=== PATIENT | male | born 1965 | race Caucasian/White ===

== ENCOUNTER 2016-12-07 19:41 | Emergency (ER) | payer OTHER ==
[~2016-12-07] VITALS: Ht 177.8 cm; Wt 132.9 kg
[~2016-12-07 19:41] MED LIST: ACET-1256 PO; BACL10TA PO; GLUCTAB7 PO; IBUP-1105 PO; MULT-506 PO; OXYC1TAB3 PO
[2016-12-07 19:45] VITALS: TEMP 37.3; Ht 177.8 cm; Wt 132.9 kg
[2016-12-07] MEDS ORDERED: METOPROLOL TARTRATE 1 MG/ML VIAL IV STA (19:48)
[2016-12-07 20:11] LABS: BASO % 0.2 %; BASO ABS # 0.02 K/uL (0-0.2); COMPLETE YES; EOS % 2.4 %; HEMATOCRIT 41.7 % (42-52); IG% 0.2 %; LYMPH % 28.8 %; LYMPH ABS # 2.78 K/uL (1.2-3.4); MEAN CELL VOLUME 91.9 fL (80-100); MEAN CORPUSCULAR HEMOGLOBIN 32.8 pg (25-34); MEAN CORPUSCULAR HGB CONC 35.7 g/dl (32-36); MEAN PLATELET VOLUME 9.2 fL (7.4-10.4); MONO % 6.4 %; PLATELET COUNT 203 K/uL (130-400); RED BLOOD COUNT 4.54 M/uL (4.7-6.1); WHITE BLOOD COUNT 9.65 K/uL (4.8-10.8)
[2016-12-07 20:23] LABS: INR 1.2 (0.9-1.1); PARTIAL THROMBOPLASTIN RATIO 1.1; PROTHROMBIN TIME (PATIENT) 12.9 SECONDS (9.0-12.0)
[2016-12-07] MEDS ORDERED: ALBU18002 INH (20:23)
[2016-12-07] MEDS ORDERED: LSN/10125 PO (20:23)
[2016-12-07] MEDS ORDERED: LRS10 PO (20:23)
--- NOTE | 2016-12-07 20:23 | DIAGNOSTIC IMAGING REPORT ---
CHEST ONE VIEW PORTABLE CLINICAL HISTORY: Fever. Sepsis COMPARISON STUDY: Chest radiograph October 18, 2010. FINDINGS: Pacer pads overlie the chest. There is no pneumothorax or pleural effusion. There is no evidence of pulmonary edema. No consolidation is present. Cardiomediastinal silhouette is normal. IMPRESSION: No acute cardiopulmonary findings. Electronically signed by: Karan Huynh M.D. 12/07/2016 8:22 PM Dictated Date/Time: 12/07/2016 8:21 PM
[2016-12-07 20:24] VITALS: O2SAT 97
[2016-12-07 20:29] LABS: BUN/CREATININE RATIO 16.8 (10-20); CALCIUM 8.6 mg/dl (8.5-10.1); CREATININE 1.2 mg/dl (0.60-1.40); POTASSIUM 3.8 mmol/L (3.5-5.1)
[2016-12-07 21:17] LABS: CKMB/CK RATIO 3.4 (0-3.0); THYROID STIMULATING HORMONE 2.76 uIu/ml (0.300-4.500)
[2016-12-07 22:48] VITALS: BP 150/99; PULSE 88; O2SAT 97
--- NOTE | 2016-12-07 23:00 | EMERGENCY ROOM VISIT NOTE ---
History Report prepared by Andrzejibshan: Robyn Mcadams Under the Supervision of: Dr. Yg Kaufman D.O. First contact with patient: 19:21 Stated Complaint: CHEST PAIN History of Present Illness The patient is a 50 year old male who presents to the Emergency Room with complaints of persistent chest pain that started earlier this evening. He was brought to the ED via EMS. 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 He went outside to smoke a cigarette with no improvement. EMS was called and the patient was cardioverted with 100 Joules and given 324 mg Aspirin in the field. He reports he felt much better after getting shocked. The patient admits to a history of hypertension and reports two days ago he saw his primary care physician for shortness of breath and fatigue. He was started on an inhaler, which has provided minimal relief. Source of History: patient Onset: CHEMICAL PRODUCTION TECHNICIAN Position: chest Timing: other (persistent) Modifying Factors (Relieving): other (Aspirin, cardioversion) Associated Symptoms: + SOB, + diaphoresis Review of Systems See HPI for pertinent positives & negatives. A total of 10 systems reviewed and were otherwise negative. Past Medical & Surgical Medical Problems: (1) Alcohol intoxication (2) Chronic back pain (3) Hypertension Social History Alcohol Use: none, heavy Drug Use: none Marital Status: Housing Status: lives with family Occupation Status: employed Current/Historical Medications Scheduled Edjhoutsrqt-Rjkdwodjngg-Ise C- (Glucosamine Chondroitin), 2 TABS PO DAILY Hctz/Lisinopril (Lisinopril/Hctz 10/12.5 Mg), 1 TAB PO NOON Multivitamin (Multivitamin), 1 TAB PO DAILY Scheduled PRN Albuterol Sulfate (Proair Respiclick), 2 PUFFS INH Q4 PRN for SOB/Wheezing Baclofen (Baclofen), 10 MG PO TID PRN for PRN Ibuprofen (Ibuprofen), 200-800 MG PO BID PRN for Pain Allergies Coded Allergies: No Known Allergies (Verified , 12/07/16) Physical Exam Vital Signs Date Time Temp Pulse Resp B/P Pulse Ox O2 Delivery O2 Flow Rate FiO2 12/07/16 22:48 88 17 150/99 97 12/07/16 22:03 89 16 140/91 98 Room Air 12/07/16 21:32 89 14 140/91 100 Nasal Cannula 2.0 12/07/16 20:44 95 20 120/91 99 Nasal Cannula 2.0 12/07/16 20:33 100 19 124/93 99 Nasal Cannula 2.0 12/07/16 20:24 97 Nasal Cannula 2.0 12/07/16 20:23 93 Room Air 12/07/16 20:16 97 20 145/98 94 Room Air 12/07/16 20:14 95 Room Air 12/07/16 20:07 109 12/07/16 20:05 108 146/101 12/07/16 19:45 37.3 117 20 154/110 98 Room Air 12/07/16 19:45 97 Room Air Physical Exam CONSTITUTIONAL/VITAL SIGNS: Reviewed / noted above. GENERAL: Non-toxic in appearance. INTEGUMENTARY: Warm, dry, and [place]. HEAD: Normocephalic. EYES: without scleral icterus or trauma. ENT/OROPHARYNX: clear and moist. LYMPHADENOPATHY/NECK: Is supple without lymphadenopathy or meningismus. RESPIRATORY: Lungs clear and equal. CARDIOVASCULAR: Regular rate and rhythm. GI/ABDOMEN: Soft and nontender. No organomegaly or pulsatile mass. No rebound or guarding. Normal bowel sounds. EXTREMITIES: Warm and well perfused. BACK: No CVA tenderness. NEUROLOGICAL: Intact without focal deficits. PSYCHIATRIC: normal affect. MUSCULOSKELETAL: Normally developed with good muscle tone. Medical Decision & Procedures ER Provider Diagnostic Interpretation: This X-Ray was reviewed and interpreted by myself and the radiologist. CHEST ONE VIEW PORTABLE IMPRESSION: No acute cardiopulmonary findings. Electronically signed by: Karan Huynh M.D. 12/07/2016 8:22 PM Laboratory Results 12/07/16 20:03 Red Blood Count 4.54, Mean Corpuscular Volume 91.9, Mean Corpuscular Hemoglobin 32.8, Mean Corpuscular Hemoglobin Concent 35.7, Mean Platelet Volume 9.2, Neutrophils (%) (Auto) 62.0, Lymphocytes (%) (Auto) 28.8, Monocytes (%) (Auto) 6.4, Eosinophils (%) (Auto) 2.4, Basophils (%) (Auto) 0.2, Neutrophils # (Auto) 5.98, Lymphocytes # (Auto) 2.78, Monocytes # (Auto) 0.62, Eosinophils # (Auto) 0.23, Basophils # (Auto) 0.02 12/07/16 20:03 Test 12/07/16 19:48 12/07/16 20:03 White Blood Count 9.65 K/uL (4.8-10.8) Red Blood Count 4.54 M/uL (4.7-6.1) Hemoglobin 14.9 g/dL (14.0-18.0) Hematocrit 41.7 % (42-52) Mean Corpuscular Volume 91.9 fL (80-100) Mean Corpuscular Hemoglobin 32.8 pg (25-34) Mean Corpuscular Hemoglobin Concent 35.7 g/dl (32-36) Platelet Count 203 K/uL (130-400) Mean Platelet Volume 9.2 fL (7.4-10.4) Neutrophils (%) (Auto) 62.0 % Lymphocytes (%) (Auto) 28.8 % Monocytes (%) (Auto) 6.4 % Eosinophils (%) (Auto) 2.4 % Basophils (%) (Auto) 0.2 % Neutrophils # (Auto) 5.98 K/uL (1.4-6.5) Lymphocytes # (Auto) 2.78 K/uL (1.2-3.4) Monocytes # (Auto) 0.62 K/uL (0.11-0.59) Eosinophils # (Auto) 0.23 K/uL (0-0.5) Basophils # (Auto) 0.02 K/uL (0-0.2) RDW Standard Deviation 41.5 fL (36.4-46.3) RDW Coefficient of Variation 12.3 % (11.5-14.5) Immature Granulocyte % (Auto) 0.2 % Immature Granulocyte # (Auto) 0.02 K/uL (0.00-0.02) Prothrombin Time 12.9 SECONDS (9.0-12.0) Prothromb Time International Ratio 1.2 (0.9-1.1) Activated Partial Thromboplast Time 29.3 SECONDS (21.0-31.0) Partial Thromboplastin Ratio 1.1 D-Dimer 210 ug/L FEU (0-500) Anion Gap 11.0 mmol/L (3-11) Est Creatinine Clear Calc Drug Dose 98.8 ml/min Estimated GFR () 80.1 Estimated GFR (Non- 69.1 BUN/Creatinine Ratio 16.8 (10-20) Calcium Level 8.6 mg/dl (8.5-10.1) Total Bilirubin 0.5 mg/dl (0.2-1) Direct Bilirubin 0.2 mg/dl (0-0.2) Aspartate Amino Transf (AST/SGOT) 42 U/L (15-37) Alanine Aminotransferase (ALT/SGPT) 54 U/L (12-78) Alkaline Phosphatase 67 U/L (45-117) Total Creatine Kinase 189 U/L (39-308) Creatine Kinase MB 6.4 ng/ml (0.5-3.6) Creatine Kinase MB Ratio 3.4 (0-3.0) Troponin I 0.044 ng/ml (0-0.045) Total Protein 7.3 gm/dl (6.4-8.2) Albumin 3.9 gm/dl (3.4-5.0) Lipase 86 U/L (73-393) Thyroid Stimulating Hormone (TSH) 2.760 uIu/ml (0.300-4.500) Laboratory results as stated above per my review. Medications Administered Medications (Trade) Dose Ordered Sig/Robin Route Start Time Stop Time Status Last Admin Dose Admin Metoprolol Tartrate (Lopressor Iv) 5 mg NOW STAT IV 12/07/16 19:48 12/07/16 19:50 DC 12/07/16 20:05 5 MG ECG Indication: chest pain Rate (beats per minute): 110 Rhythm: sinus tachycardia Findings: no acute ischemic change, no ectopy ED Course 1941: Previous medical records were reviewed. The patient was evaluated in room A1. A complete history and physical examination was performed. 1947: Lopressor 5 mg IV. 2153: I discussed the patients case with Dr. Chand, [facility]. The patient will be further evaluated. 2156: I reevaluated the patient. He states he feels well and would like to go home, despite my recommendation that he should remain in the hospital for further evaluation and management. 2199: I discussed the patient's case with Dr. Hargrove, [facility]. He recommends outpatient follow up. 2204: I reevaluated the patient. Despite my recommendation he remain in the hospital for further evaluation, he would like to leave against medical advice. I discussed the consequences associated with this and he verbalized complete understanding. Medical Decision the differential was considered includes acute myocardial infarction, acute coronary syndrome, myocarditis, pericarditis, pericardial effusions /tamponade, esophageal perforation, thoracic aortic dissection, pulmonary embolism, pneumonia, pneumothorax, pancreatitis, shingles, acute cholecystitis, perforated abdominal viscus. Physical 51-year-old male who presents to the ED with a chief complaint of palpitations and lightheadedness and dizziness. The patient was at work at all according when he developed the symptoms. He had the symptoms for about an hour and then EMS was summoned. The patient states that he was seen by his doctor yesterday. He is currently on lisinopril. He did not take his blood pressure medication today. The patient was prescribed albuterol inhaler for some shortness of breath. EMS arrived on scene and found the patient to be in a wide-complex tachycardia. It appears to be atrial fibrillation with RVR with aberrancy. Because the patient's blood pressure was low, he was cardioverted in route with 100 J. His blood pressure was reportedly 60 systolic. The patient's symptoms improved and he converted into a sinus tach. The patient was mostly symptomatically upon his arrival. His initial twelve-lead EKG here reveals a sinus tachycardia rate of 110 without ectopy or acute injury. CBC is normal. Chemistry panel was normal. Troponin is negative. Chest x-ray did not show any acute disease. The patient was given 5 mg of IV Lopressor here. He denied any use of cocaine. He states that he does drink alcohol daily. The patient did not want to stay in the hospital. He states that his is at home and she is a paranoid schizophrenic and cannot be by herself. I spoke with Dr. Hargrove about the patient. He also does not recommend the patient leave. The patient was advised of this and decided to sign out AGAINST MEDICAL ADVICE. The patient was given follow-up information for cardiology. He was advised to contact them on Saturday and return for any recurrence of symptoms or any new symptoms. Consults Time Called: 2149 Consulting Physician: Edmund Montalvo Returned Call: [phone] I discussed the patients case with Edmund Montalvo. The patient will be further evaluated. Additional Consults: Time Called: 2154 Consulted Physician: [facility] Returned Call: [phone] Additional Comments: I discussed the patient's case with [facility]. He recommends outpatient follow up. Impression Primary Impression: Wide-complex tachycardia Scribe Attestation The scribe's documentation has been prepared under my direction and personally reviewed by me in its entirety. I confirm that the note above accurately reflects all work, treatment, procedures, and medical decision making performed by me. Departure Information Dispostion Against Medical Advice
== END 2016-12-07 22:50 | disposition left against medical advice (07) ==
LOC: EDBD 19:41 → C.ED 19:43
DX: I47.2 Ventricular tachycardia (principal); I10 Essential (primary) hypertension; F17.210 Nicotine dependence, cigarettes, uncomplicated; Z79.899 Other long term (current) drug therapy